=== PATIENT | female | born 1960 ===

== ENCOUNTER 2019-06-28 10:10 | Day surgery (SDC) | payer OTHER ==
[2019-06-28] MEDS ORDERED: Sodium Bicarbonate 8.4% IV* 50 ML VIAL ONE (11:11)
[2019-06-28] MEDS ORDERED: Lidocaine 1% w EPI 1:200,000* SDV 30 ML VIAL ONE (11:12)
[2019-06-28] MEDS ORDERED: Bupivacaine 0.25% SDV* 30 ML ONE (11:53)
[2019-06-28 12:43] VITALS: BP 120/71
--- NOTE | 2019-06-28 22:27 | OP ---
DATE OF OPERATION: 06/28/19 [facility] DATE OF : 56 SURGEON: Shaun Tyler MD CHILI MAKER: ELENA Drake ANESTHESIOLOGIST: None. ANESTHESIA: Local only with 1% lidocaine with epinephrine and bicarbonate. PRE-OP DIAGNOSIS: Left trigger thumb. POST-OP DIAGNOSIS: Left trigger thumb. OPERATIVE PROCEDURE: Left trigger thumb release. INDICATIONS: Ms. Guevara has a thumb that is locked in extension. It is extremely painful. We talked about risks and benefits. She wanted to proceed. ESTIMATED BLOOD LOSS: 2 mL. COMPLICATIONS: None. FINDINGS: See above and below. DESCRIPTION OF PROCEDURE: Ms. Guevara was seen in the preoperative holding area. The correct site, side, and procedure were identified. We had a time-out , then I anesthetized the operative area with 1% lidocaine with epinephrine and bicarbonate. A short time later, we came back to the operating room, the arm was prepped and draped in the usual fashion and a time-out was performed. I exsanguinated the arm with the Esmarch and the tourniquet was inflated to 200 mmHg. I then made a 1 cm transverse incision in the MP joint flexion crease of the left thumb. Full thickness flaps were raised off the tendon sheath. Ragnell retractors were placed to protect the digital nerves. I released the A1 kailey with a 15 blade. There was a palomo of synovial fluid when I released it. Release was completed distally and proximally with the tenotomy scissors. I then had her flex and extend the thumb multiple times. There was no triggering. Wound was irrigated out and closed with 4-0 nylon suture. Soft dressing was applied and she was taken to the recovery room in stable condition. [id number]/[facility] #: [id number] [facility]
== END 2019-06-28 12:37 | disposition home or self-care (01) ==
LOC: OREAST 10:10
PROVIDERS: ATTEND Orthopaedic Surgery Hand Surgery
DX: R10.13 Epigastric pain (principal); K29.50 Unspecified chronic gastritis without bleeding; Z68.30 Body mass index [BMI] 30.0-30.9, adult; I25.10 Atherosclerotic heart disease of native coronary artery without angina pectoris; Z95.5 Presence of coronary angioplasty implant and graft; G47.33 Obstructive sleep apnea (adult) (pediatric); I10 Essential (primary) hypertension; F41.8 Other specified anxiety disorders; M19.90 Unspecified osteoarthritis, unspecified site; Z85.3 Personal history of malignant neoplasm of breast
CPT/HCPCS: J2001; J3490